=== PATIENT | male | born 1975 | race Hispanic/Latino ===

== ENCOUNTER 2023-12-18 07:18 | Emergency (ER) | payer OTHER ==
[~2023-12-18] VITALS: Ht 175.3 cm; Wt 97.5 kg
[2023-12-18 07:21] VITALS: BP_DIAS 83; TEMP 98.9
[2023-12-18] MEDS ORDERED: IOHEXOL 350 MG/ML 100ML INFUS..BTL IV ONE (07:55)
[2023-12-18] MEDS: CYCLOBENZAPRINE HCL 10 MG TABLET PO ONE (08:28)
[2023-12-18] MEDS: acetaMINOPHEN 500 MG TABLET PO STA (08:29)
[2023-12-18] MEDS ORDERED: CYCL-309 PO (09:20)
[2023-12-18 09:43] VITALS: BP_SYST 130; PULSE 58; RESP 16; O2SAT 99
== END 2023-12-18 09:55 | disposition home or self-care (01) ==
LOC: EDH 07:18
DX: R07.9 Chest pain, unspecified (principal); M54.9 Dorsalgia, unspecified; M79.642 Pain in left hand; Z98.890 Other specified postprocedural states; V89.2XXA Person injured in unspecified motor-vehicle accident, traffic, initial encounter; Y93.89 Activity, other specified; Y92.488 Other paved roadways as the place of occurrence of the external cause; Y99.8 Other external cause status
CPT/HCPCS: 70450; 71250; 73090; 93005; Q9967